=== PATIENT | female | born 1965 | race Caucasian/White ===

== ENCOUNTER → 2016-11-14 | Outpatient (CLI) | payer BC ==
[~2016-11-14] MED LIST: CA C1TAB81 PO; CETI10TA4 PO; FERR1TAB25 PO; GADOBUTROL 10mMol/10ml INJECTION IV ONE; SALINE FLUSH 10ml SYRINGE ONE
--- NOTE | 2016-11-14 14:07 | DI ---
Indication: ITS.REASON: G35 MS; PROCEDURE: MRI CERVICAL SPINE W/WO CONTRA: Encounter: Subsequent Comparison: Cervical spine MRI dated December 12, 2014 Technique: Multiplanar multisequence MR imaging of the cervical spine was performed with and without contrast. Contrast: 7 mL Gadavist Findings: Alignment of the cervical spine is stable. No acute fracture or subluxation. Bone marrow signal intensity is unchanged. There is a stable T2 hyperintense lesion in the cervical cord at the C2-C3 level. Prior T2/FLAIR hyperintense cord lesions at C5, C6, C7 and the upper thoracic spine are less apparent on today's study. No new cord lesions identified. No spinal cord enhancement to suggest active demyelinating process. The paraspinal soft tissues are unremarkable. There is only mild degenerative change with small disk osteophyte complex at C5-C6 without significant central canal or neural foraminal stenosis. Impression: Stable appearance of the cervical spine with decreased conspicuity of the lower cervical and upper thoracic demyelinating lesions. No evidence of active demyelination. .
--- NOTE | 2016-11-14 14:15 | DI ---
Indication: ITS.REASON: G35 MS; PROCEDURE: MRI BRAIN W/WO CONTRAST: Encounter: Subsequent Comparisons: Brain MRI dated November 24, 2015 Technique: Multiplanar, multisequence, MR imaging of the head with and without contrast was acquired. Contrast: 7 mL of Gadavist FINDINGS: The ventricles are of normal size, shape, and contour for the patient's age. Scattered small periventricular T2/flair white matter hyperintense lesions are again seen and are stable to slightly decreased in prominence compared to the prior study. Lesions in the periatrial parietal white matter bilaterally appear stable. No new lesion identified. No postcontrast enhancement to suggest active demyelination. The brain stem, cerebellum, and cerebral hemispheres otherwise have a normal morphologic appearance as well as MR signal intensity on all pulse sequences. There are no areas of restricted diffusion to suggest an acute infarct. There is no evidence of an intracranial mass lesion, intracranial hemorrhage, or hydrocephalus. The visualized portions of the orbits, calvarium, paranasal sinuses, and skull base demonstrate no significant abnormality. IMPRESSION: Stable appearance of the brain with small multiple sclerosis plaques. No evidence of new or active demyelinating lesion. .
== END ==
LOC: IMA 12:26
PROVIDERS: ATTEND Psychiatry & Neurology Neurology
DX: G35 Multiple sclerosis (principal)
CPT/HCPCS: 70553; 72156; A9585